=== PATIENT | female | born 1995 | race Caucasian/White ===

== ENCOUNTER → 2021-11-01 | Outpatient (CLI) | payer BC ==
[~2021-11-01] VITALS: Ht 157.5 cm; Wt 47.2 kg
[2021-11-01 10:45] LABS: HEMOGLOBIN 12.2 gm/dl (12.3-15.3); RED BLOOD COUNT 5.1 M/UL (4.00-5.10); WHITE BLOOD COUNT 4.8 K/UL (4.5-11.0)
[2021-11-01 10:53] LABS: BUN/CREATININE RATIO 15 (0-10)
== END ==
LOC: OPSV 09:55
PROVIDERS: Internal Medicine Gastroenterology
DX: K50.114 Crohn's disease of large intestine with abscess (principal)
CPT/HCPCS: 80053; 85025; 86140; 96365; J3358; J7050

== ENCOUNTER → 2022-05-07 | Outpatient (CLI) | payer BC ==
[~2022-05-07] VITALS: Ht 157.5 cm; Wt 45.4 kg
== END ==
LOC: OPSV 05-01 12:00
DX: K50.114 Crohn's disease of large intestine with abscess (principal)
CPT/HCPCS: 96365; J3358; J7050

== ENCOUNTER → 2022-05-30 | Outpatient (CLI) | payer BC | LOC: LAB 14:29 | DX: Z20.822 Contact with and (suspected) exposure to COVID-19 (principal) | CPT/HCPCS: U0002 ==